=== PATIENT | male | born 1955 | race Two or more races ===

== ENCOUNTER 2017-02-21 13:30 | Emergency (ER) | payer SELFPAY ==
[2017-02-21 13:37] VITALS: BP 110/62; PULSE 98; RESP 16; TEMP 98; O2SAT 97; BMI 28.1
--- NOTE | 2017-02-21 13:45 | ED PDOC ---
HPI: Psych/Substance Abuse Time Seen by Provider: 02/21/17 13:38 Chief Complaint (Nursing): Substance Abuse Chief Complaint (Provider): Substance abuse History Per: Patient, EMS Additional Complaint(s): 61 yo male, denies any PMH, Presents To ED via BLS for evaluation of possible substance abuse. Patient was found leaning against a pole in the street. Patient denies alcohol or drug use, states he was trying to cross the street after working overnight and was "leaning probably longer than i should have been." No medical complaints, fully awake, alert, oriented to person place and time. Past Medical History Reviewed: Nursing Documentation, Vital Signs Vital Signs: Last Vital Signs Temp 98.0 F 02/21/17 13:33 Pulse 98 H 02/21/17 13:33 Resp 16 02/21/17 13:33 BP 110/62 02/21/17 13:33 Pulse Ox 97 02/21/17 13:33 - Medical History PMH: No Chronic Diseases - Surgical History Surgical History: No Surg Hx - Family History Family History: States: No Known Family Hx - Living Arrangements Living Arrangements: With Family - Social History Current smoker - smoking cessation education provided: No Alcohol: Social Drugs: Cocaine (Former user, not in "several years") - Allergies Allergies/Adverse Reactions: Allergies Allergy/AdvReac Type Severity Reaction Status Date / Time No Known Allergies Allergy Verified 02/21/17 13:33 Review of Systems ROS Statement: Except As Marked, All Systems Reviewed And Found Negative Physical Exam - Reviewed Nursing Documentation Reviewed: Yes Vital Signs Reviewed: Yes - Physical Exam Appears: Positive for: Well, Non-toxic, No Acute Distress Head Exam: Positive for: ATRAUMATIC, NORMAL INSPECTION, NORMOCEPHALIC Skin: Positive for: Normal Color, Warm, DRY Eye Exam: Positive for: EOMI, Normal appearance, PERRL ENT: Positive for: Normal ENT Inspection Neck: Positive for: Normal, Painless ROM Cardiovascular/Chest: Positive for: Regular Rate, Rhythm Respiratory: Positive for: CNT, Normal Breath Sounds Gastrointestinal/Abdominal: Positive for: Normal Exam, Bowel Sounds, Soft Back: Positive for: Normal Inspection Extremity: Positive for: Normal ROM Neurologic/Psych: Positive for: Alert, Oriented - ECG O2 Sat by Pulse Oximetry: 97 Medical Decision Making Medical Decision Making: Vitals stable. Pt ambulating with steady gait. AAOx3, no physical complaints offered Stable for discharge at this time. . No medical intervention needed Disposition - Clinical Impression Clinical Impression: Substance abuse - Patient ED Disposition Is Patient to be Admitted: No - Disposition Disposition: Routine/Home Disposition Time: 13:45 Condition: STABLE Instructions: Polysubstance Abuse (ED) Forms: [employer] (Romanian)
[2017-02-21] MEDS ORDERED: Naloxone 0.4 mg/ml Inj (Adult) ONE (16:37)
== END 2017-02-21 14:11 | disposition home or self-care (01) ==
LOC: H.ER 13:30
DX: F11.10 Opioid abuse, uncomplicated (principal)

== ENCOUNTER 2017-02-21 16:02 | Emergency (ER) | payer SELFPAY ==
[2017-02-21 16:02] VITALS: BMI 28.1
[2017-02-21 16:06] VITALS: TEMP 97
[2017-02-21] MEDS: Naloxone HCl 2mg/2ml syr IVP STA (16:38)
[2017-02-21 16:46] VITALS: BP 105/55
--- NOTE | 2017-02-21 17:09 | ED PDOC ---
HPI: Psych/Substance Abuse Time Seen by Provider: 02/21/17 17:07 Chief Complaint (Nursing): Substance Abuse Chief Complaint (Provider): OD Additional History Per: EMS (Found ams on street arousable by sternal rub hx of drug abuser. recently seen in er for drug use) Past Medical History Reviewed: Historical Data, Nursing Documentation, Vital Signs Vital Signs: Last Vital Signs Temp 97.0 F L 02/21/17 16:03 Pulse 91 H 02/21/17 16:41 Resp 25 H 02/21/17 16:41 BP 105/55 L 02/21/17 16:41 Pulse Ox 99 02/21/17 16:41 - Family History Family History: States: Unknown Family Hx - Social History Drugs: Other (heroin) - Allergies Allergies/Adverse Reactions: Allergies Allergy/AdvReac Type Severity Reaction Status Date / Time No Known Allergies Allergy Verified 02/21/17 16:03 Review of Systems ROS Statement: Except As Marked, All Systems Reviewed And Found Negative Review Of Systems: ROS cannot be obtained secondary to pt's inabilty to answer questions. Physical Exam - Reviewed Nursing Documentation Reviewed: Yes Vital Signs Reviewed: Yes - Physical Exam Appears: Positive for: No Acute Distress. Negative for: Non-toxic Head Exam: Positive for: ATRAUMATIC, NORMAL INSPECTION, NORMOCEPHALIC Skin: Positive for: Warm, Pallor Eye Exam: Negative for: PERRL (pin point b/l) Cardiovascular/Chest: Positive for: Regular Rate, Rhythm Respiratory: Positive for: Other (labored breathing) Neurologic/Psych: Positive for: Alert, Oriented - Laboratory Results Result Diagrams: 02/21/17 17:10 02/21/17 17:10 - ECG O2 Sat by Pulse Oximetry: 99 - Progress ED Course And Treament: while in ED pt very somnolent with decreased BP and pulse ox, arousaable only to sternal rub and for <1mins unable to create a coherent sentence. pt given Narcan 1mg. Pt BP/HR/Pulse ox improved. pt arousable, talkative and active. will be monitored Medical Decision Making Medical Decision Makin02/21/17 16:12 POC Glucose (mg/dL) 113 H BUN and Cr are elevated however Bicarb:normal/ K+: normal. pt will need f.u with pmd. no acute intervention required at this time. 02/21/17 02/21/17 02/21/17 17:10 17:10 16:12 WBC 7.4 RBC 4.13 L Hgb 12.4 Hct 39.0 MCV 94.3 H MCH 30.1 MCHC 31.9 L RDW 14.2 Plt Count 142 MPV 11.3 Neut % (Auto) 74.7 Lymph % (Auto) 13.8 L [place] % (Auto) 11.4 H Eos % (Auto) 0.0 Baso % (Auto) 0.1 Neut # 5.5 Lymph # 1.0 [place] # 0.8 Eos # 0.0 Baso # 0.0 Sodium 141 Potassium 4.2 Chloride 101 Carbon Dioxide 25 Anion Gap 19 BUN 42 H Creatinine 2.4 H Est GFR ( Amer) 33 Est GFR (Non-Af Amer) 27 POC Glucose (mg/dL) 113 H Random Glucose 111 H Calcium 9.3 Total Bilirubin 0.6 AST 31 ALT 32 Alkaline Phosphatase 79 Total Protein 7.9 Albumin 4.5 Globulin 3.4 Albumin/Globulin Ratio 1.3 Alcohol, Quantitative < 10 Disposition - Clinical Impression Clinical Impression: Substance abuse - Patient ED Disposition Is Patient to be Admitted: No Counseled Patient/Family Regarding: Need For Followup - Disposition Disposition: Routine/Home Disposition Time: 17:12 Condition: STABLE Instructions: Narcotic Abuse (ED) Forms: [employer] (Malaysian)
[2017-02-21 17:23] LABS: BASO % 0.1 % (0.0-2.0); HEMOGLOBIN 12.4 g/dL (12.0-18.0); LYMPH % 13.8 % (20.0-40.0); MEAN CELL VOLUME 94.3 fl (80.0-94.0); MEAN CORPUSCULAR HEMOGLOBIN 30.1 pg (27.0-31.0); MEAN CORPUSCULAR HGB CONC 31.9 g/dL (33.0-37.0); MEAN PLATELET VOLUME 11.3 fl (7.2-11.7); MONO # 0.8 K/uL (0.0-0.8); MONO % 11.4 % (0.0-10.0); NEUT # 5.5 K/uL (1.8-7.0); NEUT % 74.7 % (50.0-75.0); NRBC % 0.2 % (0.0-0.0); RBC 4.13 Mil/uL (4.40-5.90); RED CELL DISTRIBUTION WIDTH 14.2 % (11.5-14.5); WHITE BLOOD COUNT 7.4 K/uL (4.8-10.8)
[2017-02-21 17:51] LABS: ALB/GLOB RATIO 1.3 (1.0-2.1); ALBUMIN 4.5 g/dL (3.5-5.0); ALT/SGPT 32 U/L (21-72); AST/SGOT 31 U/L (17-59); BLOOD UREA NITROGEN 42 mg/dl (9-20); CALCIUM 9.3 mg/dL (8.4-10.2); GFR AFRICAN-AMERICAN 33; GFR NON-AFRICAN AMERICAN 27
[2017-02-21 18:09] VITALS: PULSE 73; RESP 14; O2SAT 96
== END 2017-02-21 18:11 | disposition home or self-care (01) ==
LOC: H.ER 16:02
DX: F11.10 Opioid abuse, uncomplicated (principal)
CPT/HCPCS: 80053; 82948; 85025; 96374; 99285; G0480